=== PATIENT | female | born 1985 ===

== ENCOUNTER 2019-06-15 08:09 | Emergency (ER) | payer SELFPAY ==
[2019-06-15 08:20] VITALS: BP 128/77
--- NOTE | 2019-06-15 08:31 | UC ---
Ear Complaint HPI - HPI Summary HPI Summary: The patient is a 33-year-old female that tells me that she has had intermittent bilateral ear problems since March. She has been diagnosed with otitis externa on multiple occasions. Last night she had the onset of right ear pain followed by a pop and otorrhea. Her hearing is decreased in her right ear. She denies any fever or chills. She denies any trouble with otitis media as a child. She has never had PE tubes. - History of Current Complaint Chief Complaint: UCEar Stated Complaint: EAR PAIN Time Seen by Provider: 06/15/19 08:21 Hx Obtained From: Patient Hx Last Menstrual Period: 06/10/19 Onset/Duration: Sudden Onset, Lasting Hours Severity Initially: Mild Severity Currently: Mild Pain Intensity: 4 Pain Scale Used: 0-10 Numeric Aggravating Factors: Nothing Alleviating Factors: Nothing Associated Signs/Symptoms: Positive: Discharge, Hearing Loss - Allergies/Home Medications Allergies/Adverse Reactions: Allergies Allergy/AdvReac Type Severity Reaction Status Date / Time No Known Allergies Allergy Verified 06/15/19 08:20 Home Medications: Home Medications Amoxicillin PO (*) [Amoxicillin 875 MG (*)] 875 mg PO BID #20 tab 06/15/19 [Rx] Levothyroxine TAB* [Synthroid 100 MCG TAB*] 1 tab PO DAILY 06/15/19 [History Confirmed 06/15/19] PMH/Surg Hx/FS Hx/Imm Hx Previously Healthy: Yes - Surgical History Surgical History: None - Family History Known Family History: Positive: Hypertension - Social History Alcohol Use: Weekly Substance Use Type: None Smoking Status (MU): Never Smoked Tobacco Review of Systems All Other Systems Reviewed And Are Negative: Yes Constitutional: Positive: Negative Skin: Positive: Negative Eyes: Positive: Negative ENT: Positive: Ear Ache Respiratory: Positive: Negative Cardiovascular: Positive: Negative Gastrointestinal: Positive: Negative Genitourinary: Positive: Negative Motor: Positive: Negative Musculoskeletal: Positive: Negative Neurological/Mental Status: Positive: Negative Psychological: Positive: Negative Physical Exam Triage Information Reviewed: Yes Appearance: Well-Appearing, No Pain Distress, Well-Nourished Vital Signs: Initial Vital Signs Temp 96.7 F 06/15/19 08:13 Pulse 100 06/15/19 08:13 Resp 18 06/15/19 08:13 BP 128/77 06/15/19 08:13 Pulse Ox 99 06/15/19 08:13 Vital Signs Reviewed: Yes Eyes: Positive: Conjunctiva Clear ENT: Positive: Hearing grossly normal, Pharynx normal, Uvula midline, Other - no tragal or mastoid tenderness, left EAC red. Negative: Nasal congestion, Nasal drainage, TMs normal - unable to vis R tm due to otorrhea, left TM juan f, Tonsillar swelling, Tonsillar exudate, Trismus, Muffled voice, Hoarse voice Dental Exam: Normal Neck: Positive: Supple, Nontender, No Lymphadenopathy Respiratory: Positive: Lungs clear, Normal breath sounds, No respiratory distress, No accessory muscle use Cardiovascular: Positive: RRR, No Murmur Musculoskeletal: Positive: ROM Intact, No Edema Neurological: Positive: Alert Psychological Exam: Normal Skin Exam: Normal Ear Complaint Course/Dx - Differential Dx/Diagnosis Provider Diagnosis: Left otitis media with spontaneous rupture of eardrum Discharge ED - Sign-Out/Discharge Documenting (check all that apply): Patient Departure All imaging exams completed and their final reports reviewed: No Studies - Discharge Plan Condition: Stable Disposition: HOME Prescriptions: Amoxicillin PO (*) [Amoxicillin 875 MG (*)] 875 mg PO BID #20 tab Patient Education Materials: Ruptured Eardrum (ED) Referrals: Anmol Cleveland MD [Medical Doctor] - If Needed (I suggest an ear recheck in about three weeks) - Billing Disposition and Condition Condition: STABLE Disposition: Home
== END 2019-06-15 08:40 | disposition home or self-care (01) ==
LOC: UCEAST 08:09
DX: H66.92 Otitis media, unspecified, left ear (principal); H72.92 Unspecified perforation of tympanic membrane, left ear
CPT/HCPCS: 99201; G0463